=== PATIENT | female | born 1960 | race Caucasian/White ===

== ENCOUNTER → 2017-02-14 | Outpatient (CLI) | payer BC ==
--- NOTE | 2017-02-18 06:58 | RADIOLOGY REPORT PS360 ---
CT EXT.UPPER-LT-W/O CONTRAST CLINICAL INDICATION: Left-sided shoulder pain and posterior cervical pain with numbness and tingling in the left upper extremity THORACIC OUTLET SYNDROME ORDERING PHYSICIAN: JAJA FALCON PATIENT AGE: 56 years TECHNIQUE: Axial images are obtained with sagittal and coronal reformats as well as 3-D reformats. COMPARISON: None FINDINGS: Mild osteoarthritic changes are present at the glenohumeral joint with decrease in the joint space and osteophyte formation. There is inferior displacement of the distal clavicle with 0% apposition at the acromioclavicular joint. The distal clavicle is displaced inferiorly x 11 mm. The anterior aspect of the acromium is slightly downward with mild impingement upon the supraspinatus muscle. These findings may very well result in impingement symptomatology. Please correlate clinically. Has the patient had prior shoulder surgery? No acute fracture. No destructive process. IMPRESSION: 1. Inferior displacement of the distal clavicle with 0% apposition at the AC joint 2. Downward hooking acromium with impingement upon the supraspinatus muscle anteriorly 3. Osteoarthritic change of the glenohumeral joint
== END ==
LOC: RAD 14:32
DX: G54.0 Brachial plexus disorders (principal)